=== PATIENT | male | born 1950 | race Asian ===

== ENCOUNTER 2019-04-19 12:46 | Emergency (ER) | payer MEDICARE, OTHER ==
--- NOTE | 2019-04-19 13:10 | ED Physician Chart ---
ED Chief Complaint/HPI - Patient Information Date Seen:: 04/19/19 Time Seen:: 13:06 Chief Complaint:: rash History of Present Illness:: 69 yr old male in good health for rash in different places of the body was given pills cream and not working no fever cough headache or dizziness Allergies:: Allergies Allergy/AdvReac Type Severity Reaction Status Date / Time No Known Allergies Allergy Verified 04/19/19 13:02 ED Review of Systems - Review of Systems General/Constitutional: No fever, No chills, No weight loss, No weakness, No diaphoresis, No edema, No loss of appetite Skin: Rash Head: No headache, No light-headedness Eyes: No loss of vision, No pain, No diplopia ENT: No earache, No nasal drainage, No sore throat, No tinnitus Neck: No neck pain, No swelling, No thyromegaly, No stiffness, No mass noted Cardio Vascular: No chest pain, No palpitations, No PND, No orthopnea, No edema Pulmonary: No SOB, No cough, No sputum, No wheezing GI: No nausea, No vomiting, No diarrhea, No pain, No melena, No hematochezia, No constipation, No hematemesis G/U: No dysuria, No frequency, No hematuria Musculoskeletal: No bone or joint pain, No back pain, No muscle pain Endocrine: No polyuria, No polydipsia Psychiatric: No prior psych history, No depression, No anxiety, No suicidal ideation Hematopoietic: No bruising, No lymphadenopathy Allergic/Immuno: No urticaria, No angioedema Neurological: No syncope, No focal symptoms, No weakness, No paresthesia, No headache, No seizure, No dizziness, No confusion, No vertigo ED Past Medical History - Past Medical History Past Medical History: Other (see nurses notes) Family Medical History - Family Member Mother History Unknown: Yes ED Physical Exam - Physical Examination General/Constitutional: Awake, Well-developed, well-nourished, Alert, No distress, GCS 15, Non-toxic appearing, Ambulatory Head: Atraumatic Eyes: Lids, conjuctiva normal, PERRL, EOMI Skin: No ecchymosis, Well hydrated, No lymphadenopathy Other Skin comments:: rash small maculopapular nt very easily seen ENMT: External ears, nose nl, Nasal exam nl, Lips, teeth, gums nl Neck: Nontender, Full ROM w/o pain, No JVD, No nuchal rigidity, No bruit, No mass, No stridor Respiratory: Nl effort/Exclusion, Clear to Auscultation, No Wheeze/Rhonchi/Rales Cardio Vascular: RRR, No murmur, gallop, rubs, NL S1 S2 GI: No tenderness/rebounding/guarding, No organomegaly, No hernia, Normal BS's, Nondistended, No mass/bruits, No McBurney tenderness : No CVA tenderness Extremities: No tenderness or effusion, Full ROM, normal strength in all extremities, No edema, Normal digits & nails Neuro/Psych: Alert/oriented, DTR's symmetric, Normal sensory exam, Normal motor strength, Judgement/insight normal, Mood normal, Normal gait, No focal deficits Misc: Normal back, No paraspinal tenderness ED Assessment - Assessment General Assessment: rash r/o scabies ED Septic Shock - . Is Septic Shock (SBP<90, OR Lactate>4 mmol\L) present?: No ED Reassessment (Disposition) - Reassessment Reassessment:: rash r/o scabies - Diagnosis Diagnosis:: as above - Aftercare/Follow up Instructions Medication Prescribed:: benadryl elimite cream - Patient Disposition Discharge/Transfer:: Home Condition at Disposition:: Stable
== END 2019-04-19 13:28 | disposition home or self-care (01) ==
LOC: ER 12:46
DX: R21 Rash and other nonspecific skin eruption (principal); I10 Essential (primary) hypertension; E78.5 Hyperlipidemia, unspecified; K21.9 Gastro-esophageal reflux disease without esophagitis

== ENCOUNTER 2019-05-27 06:17 | Emergency (ER) | payer MEDICARE, OTHER ==
--- NOTE | 2019-05-27 06:51 | ED Physician Chart ---
ED Chief Complaint/HPI - Patient Information Date Seen:: 05/27/19 Time Seen:: 06:46 Chief Complaint:: Chronic itchy rashes History of Present Illness:: 69 yo male has episodic itchy rashes for 7 months. Pt stated that the itchiness and erythema would usually occur when the clothes is too tight. This morning, pt has some rashes on the occipital scalp and mid upper posterior neck, bilateral inguinal areas and left inner thigh. Pt stated that they are extremely itchy. Allergies:: Allergies Allergy/AdvReac Type Severity Reaction Status Date / Time No Known Allergies Allergy Verified 04/19/19 13:02 ED Review of Systems - Review of Systems General/Constitutional: No fever, No chills Skin: Rash Head: No headache Eyes: No loss of vision ENT: No nasal drainage Neck: No neck pain Cardio Vascular: No chest pain Pulmonary: No SOB GI: No nausea, No vomiting Musculoskeletal: No bone or joint pain Neurological: No focal symptoms ED Past Medical History - Past Medical History Past Medical History: HTN, Dyslipidemia, Other (BPH) Social History: Non Smoker, No Alcohol, No Drug Use Family Medical History - Family Member Mother History Unknown: Yes ED Physical Exam - Physical Examination General/Constitutional: Awake, Alert Head: Atraumatic Eyes: PERRL Other Skin comments:: Erythematous and itchy rashes on the occipital and posterior upper neck. ENMT: Nasal exam nl Neck: No nuchal rigidity Respiratory: Clear to Auscultation Cardio Vascular: RRR, No murmur, gallop, rubs, NL S1 S2 GI: No tenderness/rebounding/guarding Extremities: normal strength in all extremities Neuro/Psych: No focal deficits ED Assessment - Assessment General Assessment: Recurrent urticaria/hives Assessment/Comments:: Benadryl 50 mg IM ED Septic Shock - . Is Septic Shock (SBP<90, OR Lactate>4 mmol\L) present?: No ED Reassessment (Disposition) - Reassessment Reassessment:: Erythematous rashes disappeared after benadryl IM Reassessment Condition:: Improved - Aftercare/Follow up Instructions Notes:: D/c home Take OTC benadryl F/u PCP - Patient Disposition Discharge/Transfer:: Home
== END 2019-05-27 07:24 | disposition home or self-care (01) ==
LOC: ER 06:17
DX: L50.9 Urticaria, unspecified (principal); I10 Essential (primary) hypertension; E78.5 Hyperlipidemia, unspecified
CPT/HCPCS: J1200; Z7502